=== PATIENT | male | born 1990 | race Caucasian/White ===

== ENCOUNTER 2022-01-20 13:06 | Emergency (ER) | payer OTHER ==
[~2022-01-20] VITALS: Ht 172.7 cm; Wt 66.4 kg
[~2022-01-20 13:06] MED LIST: ADDE25CA PO
[2022-01-20 13:07] VITALS: BP 130/76
[2022-01-20] MEDS ORDERED: AUGMENTIN 875 MG TAB PO ONE (14:00)
[2022-01-20] MEDS ORDERED: AMOX875T2 PO (14:37)
== END 2022-01-20 14:49 | disposition home or self-care (01) ==
LOC: M ED 13:06
DX: S61.031A Puncture wound without foreign body of right thumb without damage to nail, initial encounter (principal); W55.01XA Bitten by cat, initial encounter; Y92.89 Other specified places as the place of occurrence of the external cause; F90.9 Attention-deficit hyperactivity disorder, unspecified type; F17.200 Nicotine dependence, unspecified, uncomplicated; Z79.899 Other long term (current) drug therapy